=== PATIENT | female | born 1995 | race African-American/Black ===

== ENCOUNTER 2017-05-06 11:30 | Emergency (ER) | payer MEDICAID, OTHER ==
[~2017-05-06] VITALS: Ht 160 cm; Wt 75.0 kg
[~2017-05-06 11:30] MED LIST: DEPO150I IM; FLUO10TA PO; PREN0.01 PO
[2017-05-06 11:55] VITALS: BP 131/78; PULSE 90; RESP 16; TEMP 98.5; O2SAT 100
[2017-05-06] MEDS ORDERED: PREN29TA PO (12:41)
--- NOTE | 2017-05-06 13:14 | PD ---
HPI Chief Complaint: Syncope/Near-Syncope Time Seen by Provider: 12:21 Travel History International Travel<30 days: No Contact w/Intl Traveler<30days: No Traveled to known affect area: No History of Present Illness HPI The patient was seen and examined in the presence of the nurse. This patient is 4 months with twins. She was getting her hair done when she developed lightheadedness and dizziness and nausea. She did not pass out. No LOC. Symptoms resolved after 20 minutes. At this point she feels fine but wanted to get checked out. She did not have any pelvic pain or vaginal bleeding. Symptoms were mild to moderate in severity. [facility] Past Medical History Medical History: Denies Significant Hx Diminished Hearing: No Influenza Vaccination: No ?: LMP: 01/14/17 : 3 Miscarriage: 2 Past Surgical History Surgical History: No Previous Surgery Social History Alcohol Use: No Tobacco Use: No Substance Use: No Allergies-Medications (Allergen,Severity, Reaction): Coded Allergies: No Known Allergies (Verified , 05/06/17) Reported Meds & Prescriptions Reported Meds & Active Scripts Active Reported Plus Iron 29-1 mg ( Vit-Iron Carbonyl) 1 Tab Tab 1 Tab PO DAILY Review of Systems HENT: Positive: Lightheadedness Gastrointestinal: Positive: Nausea Neurologic: Positive: Dizziness Physical Exam Narrative GENERAL: Well-nourished, well-developed patient in no apparent distress. SKIN: Focused skin assessment reveals no rash and nodules. Skin is Warm and dry. HEAD: Atraumatic. Normocephalic. EYES: Pupils equal and round. No scleral icterus. No injection or drainage. ENT: No nasal bleeding or discharge. Mucous membranes pink and moist. NECK: Trachea midline. No JVD. CARDIOVASCULAR: Regular rate and rhythm. No murmur appreciated. RESPIRATORY: No accessory muscle use. Clear to auscultation. Breath sounds equal bilaterally. GASTROINTESTINAL: Abdomen soft, gravid uterus is nontender, nondistended. Hepatic and splenic margins not palpable. MUSCULOSKELETAL: No obvious deformities. No clubbing. No cyanosis. No edema. NEUROLOGICAL: Awake and alert. No obvious cranial nerve deficits. Motor grossly within normal limits. Normal speech. PSYCHIATRIC: Appropriate mood and affect; insight and judgment normal. Data Data Last Documented VS Vital Signs Date Time Temp Pulse Resp B/P Pulse Ox O2 Delivery O2 Flow Rate FiO2 05/06/17 11:55 98.5 90 16 131/78 100 MDM Medical Decision Making Medical Screen Exam Complete: Yes Emergency Medical Condition: Yes Medical Record Reviewed: Yes Differential Diagnosis Vasovagal episode, orthostatic hypotension, dehydration Narrative Course I have reviewed the patient's electronic medical record. Patient is now asymptomatic with normal vital signs. No cardiac ectopy No pelvic symptoms I did a bedside transabdominal ultrasound which reveals twin gestation. Both fetuses have good heart rate and active movement Patient is ambulatory in the department without symptoms She has appointment with her OB physician tomorrow Diagnosis Primary Impression: Pre-syncope Additional Impression: Twin in second trimester Qualified Code: O30.002 - Twin gestation in second trimester, unspecified multiple gestation type Additional Instructions: The patient was advised to follow up with their physician and return if they worsen. Med/Other Pt SpecificInfo: Other Disposition: 01 DISCHARGE HOME Condition: Stable Tanmay Johnson MD May 06, 2017 13:14
== END 2017-05-06 13:42 | disposition home or self-care (01) ==
LOC: PHED 11:30
DX: O30.002 Twin pregnancy, unspecified number of placenta and unspecified number of amniotic sacs, second trimester (principal); R42 Dizziness and giddiness; R11.0 Nausea
CPT/HCPCS: 99284